=== PATIENT | male | born 1970 | race Caucasian/White ===

== ENCOUNTER 2021-07-23 16:32 | Emergency (ER) | payer OTHER, SELFPAY ==
[2021-07-23] VITALS (17 sets, daily range): BP systolic 125–138; BP diastolic 80–96; PULSE 65–114; RESP 11–24; TEMP 35.7–36.6; O2SAT 93–100
--- NOTE | ~2021-07-23 | XR_ITS ---
EXAMINATION: XR chest 2V EXAM DATE: 07/23/2021 17:16 INDICATION: Midsternal chest pain. Symptoms one month. 3 hypertension. TECHNIQUE: Frontal and lateral projections of the chest obtained and reviewed. There is no prior kira dy for comparison. FINDINGS: The lungs are clear. There are no pleural effusions. The cardiomediastinal silhouette is within normal limits. There is no pneumothorax suspected. The bones and soft tissues are unremarkab le. IMPRESSION: No acute cardiopulmonary findings. Reviewed, dictated and finalized at location A. OWER DEVELOPMENT SPECIALIST
--- NOTE | ~2021-07-23 | CT_ITS ---
EXAMINATION: CTA chest PE protocol EXAM DATE: 07/23/2021 20:19 INDICATION: cp, elevated dimer, tachycardia. TECHNIQUE: Spiral CTA of the chest (pulmonary arteries) was performed with 1 cc Omnipaque 350 intrav enous contrast injection. Images were acquired during the pulmonary arterial phase. Coronal maximu m intensity projection 3D-reconstructions were created by the technologist on dedicated workstation. Axial, coronal and sagittal reformatted images were reviewed. The dose-length product (DLP) for thi s examination was 357.94 mGy-cm. The exposure was tailored according to patient size (auto mA expos ure control), and iterative reconstruction (ASIR) was used as additional dose reduction technique. Co rrelation is made to chest x-ray same date. FINDINGS: Pulmonary arteries are well opacified and without intraluminal filling defects. No thora cic aortic dissection. The lungs are clear. There are no pleural or pericardial effusions. Trach eobronchial tree is patent. There is no mediastinal, hilar or axillary lymphadenopathy. There is no pneumothorax. Heart normal in size. There is mild coronary arterial calcification, arterial sc lerosis. There is hepatic steatosis. There is small to moderate sliding gastroesophageal hiatal shahbaz ia. There is mild to moderate thoracic spondylosis without osteoblastic or osteolytic lesions identi fied. IMPRESSION: 1. No pulmonary emboli or acute cardiopulmonary findings. 2. Small to moderate hiatal hernia. 3. Hepatic steatosis. Reviewed, dictated and finalized at location A. STANT LABORATORY DIRECTOR
--- NOTE | 2021-07-23 16:34 | ECG_ITS ---
Measurements Intervals [place] Rate: 107 P: 26 CT: 144 QRS: -79 QRSD: 89 T: 38 QT: 328 QTc: 439 Interpretive Statements SINUS TACHYCARDIA LEFT AXIS DEVIATION BORDERLINE R WAVE PROGRESSION, ANTERIOR LEADS INFERIOR INFARCT, AGE INDETERMINATE BASELINE ARTIFACT- I, III, AVL, V1 ABNORMAL ECG Electronically Signed On 07-23-2021 16:49:00 [employer] by Lefty Novak D.O.
[2021-07-23 17:10] LABS: Basophils Absolute Auto 0.1 K/mm3 (0.0-0.1); Basophils Percent Auto 0.8 % (0.2-1.2); Eosinophils Percent Auto 0.1 % (0-4.4); Hematocrit 48.2 % (42.0-52.0); Hemoglobin 16.7 g/dL (14.0-18.0); Immature Granulocyte Absolute 0.02 K/mm3 (0.00-0.031); Immature Granulocyte Percent A 0.3 % (0-0.5); Lymphocytes Absolute Auto 2.52 K/mm3 (0.9-3.2); Lymphocytes Percent Auto 31.7 % (18.3-44.2); Mean Corpuscular HGB Conc 34.6 g/dl (32-36); Mean Corpuscular Volume 98.2 fl (80-100); Mean Platelet Volume 8.9 fl (7.4-10.4); Monocytes Absolute Auto 0.6 K/mm3 (0.1-0.6); Monocytes Percent Auto 7.7 % (2.6-8.5); Neutrophils Absolute Auto 4.7 K/mm3 (1.3-6.7); Neutrophils Percent Auto 59.4 % (45.5-73.1); Platelet Count Result 235 k/mm3 (150-375); Red Blood Count 4.91 M/mm3 (4.6-6.20)
[2021-07-23 17:21] LABS: Alanine Aminotransferase 128 U/L (4-50); Alkaline Phosphatase 115 U/L (38-126); Anion Gap 18 mmol/L (8-16); Aspartate Amino Transferase 176 U/L (17-59); Bilirubin,Total 1.3 mg/dL (0.2-1.3); Blood Urea Nitrogen 10 mg/dL (9-20); Calcium 9.1 mg/dL (8.4-10.2); Carbon Dioxide 20 mmol/L (22-30); Chloride 100 mmol/L (98-107); Estimated CRCL calculation 79 ml/min; Estimated Glomerular Filt Rate > 60; Glucose 91 mg/dL (65-110); Lipase 73 U/L (23-300); Sodium 138 mmol/L (137-145)
[2021-07-23 17:22] LABS: INR 0.9
[2021-07-23 17:23] LABS: Partial Thromboplastin Time 28.8 SECONDS (22.3-36.8)
[2021-07-23 17:33] LABS: Troponin I < 0.012 ng/mL (0.000-0.034)
--- NOTE | 2021-07-23 19:20 | ED.CHESTPAIN ---
HPI - Chest Pain General Chief Complaint: Chest Pain Stated Complaint: chest pain Time Seen by Provider: 07/23/21 18:43 Source: patient Mode of arrival: ambulatory Limitations: no limitations History of Present Illness HPI narrative: This is a 51 year old male that presents to the ER for chest pain present for the last month. Reports a substernal chest pain that is sharp and almost constant in nature. Reports some improvement in pain with his blood pressure medication. Reports he thinks he may be having trouble with anxiety. He was recently retired from the service. Denies shortness of breath or lower extremity edema. Related Data Home Medications Medication Instructions Recorded Confirmed lisinopril 20 mg PO DAILY 07/23/21 Allergies Allergy/AdvReac Type Severity Reaction Status Date / Time No Known Allergies Allergy Verified 07/23/21 19:16 Review of Systems Review of Systems: CONSTITUTIONAL: Denies fever CARDIOVASCULAR: Reports chest pain. Denies edema. RESPIRATORY: Denies dyspnea. All systems reviewed & are unremarkable except as noted in HPI and below PMFSH Past Medical History Medical History (Updated 07/23/21 @ 21:00 by Jaz Long PA-C) History of hypertension Social History Social History (Updated 07/23/21 @ 19:27 by Jaz Long PA-C) Alcohol intake: current Exam Narrative: GENERAL: Well-appearing, well-nourished, anxious HEAD: Normocephalic, atraumatic. EYES: EOMI. ENT: Nares clear, no rhinorrhea or epistaxis. Mucous membranes moist. Oropharynx without tonsillar hypertrophy exudate or other lesions. Bilateral TMs pearly collazo non-bulging NECK: Supple. No adenopathy or masses. No carotid bruits or JVD CHEST: Clear to auscultation. No respiratory distress. No wheezes rales or rhonchi HEART: Regular rate and rhythm. No murmur heard. Normal peripheral pulses. EXTREMITIES: Normal range of motion. No edema. SKIN: Warm, dry, no rash. NEURO: No focal deficits. Alert and oriented x3. PSYCH: Anxious, tearful Course Vital Signs Vital signs: Vital Signs Temperature 96.3 F L 07/23/21 16:45 Pulse Rate 114 H 07/23/21 16:45 Respiratory Rate 17 07/23/21 16:45 Blood Pressure 130/96 H 07/23/21 16:45 Pulse Oximetry 100 07/23/21 16:45 Temperature 96.3 F L 07/23/21 16:45 Pulse Rate 94 07/23/21 18:29 Respiratory Rate 16 07/23/21 17:58 Blood Pressure 138/80 07/23/21 17:58 Pulse Oximetry 98 07/23/21 17:58 MDM - Chest Pain MDM Narrative Medical decision making narrative: Patient presents to the emergency department for chest pain ongoing for weeks. Reports a sharp, almost constant substernal chest pain. Also reporting a lot of trouble with anxiety. Tachycardic upon arrival, this normalized with administration of fluids and anxiety medication. CBC without concerning findings. Metabolic panel with evidence of likely some dehydration. Patient hydrated while in the ED. Liver enzymes are elevated, likely due to patient's daily drinking. EKG with nonspecific ST changes. Baseline and 3-hour troponin are negative. D-dimer was elevated, so CTA of the chest was obtained. No PE or acute cardiopulmonary abnormality. Shows hepatic steatosis. Patient was updated on case findings. His heart score is a 3. He is stable and felt appropriate for further outpatient valuation. He was given warnings to return to the ER Lab Data Attestation: I reviewed the patient's lab results. Result diagrams: 07/23/21 16:43 07/23/21 16:43 Labs: Lab Results 07/23/21 07/23/21 07/23/21 Range/Units 16:43 16:43 16:43 WBC 8.0 (4.5-10.0) K/mm3 RBC 4.91 (4.6-6.20) M/mm3 Hgb 16.7 (14.0-18.0) g/dL Hct 48.2 (42.0-52.0) % MCV 98.2 (80-100) fl MCH 34.0 (26-34) pg MCHC 34.6 (32-36) g/dl RDW 12.0 (11.5-14.5) % Plt Count 235 (150-375) k/mm3 MPV 8.9 (7.4-10.4) fl Immature Gran % (Auto) 0.3 (0-0.5) % Neut % (Auto
--- NOTE | 2021-07-23 19:21 | PC.NURSE ---
Report received from EDIS Robledo. Assumed care of patient at this time.
[2021-07-23 19:38] LABS: D Dimer 0.98 ug/mL (<0.48)
[2021-07-23] MEDS: LORazepam INJ (*CRX) 2 MG/ML VIAL 1 MG IV PUSH (19:38)
[2021-07-23] MEDS: SODIUM CHLORIDE 0.9% IV 1,000 ML 999 ML IV CONT (19:38)
[2021-07-23 19:50] LABS: Troponin I < 0.012 ng/mL (0.000-0.034)
== END 2021-07-23 21:15 | disposition home or self-care (01) ==
PROVIDERS: Emergency Medicine; Physician Assistant; Emergency Provider Emergency Medicine
DX: R07.89 Other chest pain (principal); I10 Essential (primary) hypertension
CPT/HCPCS: 36415; 71046; 71275; 80053; 83690; 84484; 85025; 85380; 85610; 85730; 93005; 96361; 96374; 99284; J2060; J7030; Q9967